=== PATIENT | female | born 1995 | race Caucasian/White ===

== ENCOUNTER 2019-04-06 05:27 | Inpatient (IN) | payer OTHER ==
[~2019-04-06] VITALS: Ht 162.6 cm; Wt 103.2 kg
[~2019-04-06 05:27] MED LIST: ALPR0.25 PO; ONDA4TAB13 PO; PRE NATAL VIT PO
[2019-04-06 07:30] VITALS: Ht 162.6 cm; Wt 103.2 kg
[2019-04-06] MEDS ORDERED: LACTATED RINGER'S 1,000 ML IV SCH (07:58)
[2019-04-06] MEDS ORDERED: OXYTOCIN 30 UNITS/LR 500 ML IV SCH ×2 (08:00→14:11)
[2019-04-06] MEDS ORDERED: CARBOPROST 250 MCG INJ IM PRN ×2 (08:00→14:30)
[2019-04-06] MEDS ORDERED: METHYLERGONOVINE 0.2 MG INJ IM PRN ×2 (08:00→14:30)
[2019-04-06] MEDS ORDERED: MISOPROSTOL 200 MCG TAB PR PRN ×2 (08:00→14:30)
[2019-04-06] MEDS ORDERED: OXYTOCIN 30 UNITS/LR 500 ML IV PRN ×2 (08:00→14:30)
[2019-04-06] MEDS ORDERED: CEFAZOLIN 2 GM/50 ML (PMX) 50 ML IVPB SCH (08:00)
[2019-04-06] MEDS ORDERED: morphine SULFATE/PF (10 MG/10 ML) INJ ONE (08:54)
[2019-04-06] MEDS ORDERED: OXYTOCIN 30 UNITS/LR 500 ML BAG IV ONE (08:54)
[2019-04-06] MEDS ORDERED: EPHEDrine 25 MG/5 ML SYG ONE (08:54)
[2019-04-06] MEDS ORDERED: PHENYLephrine (100 MCG/ML) 10ML SYG ONE (08:54)
[2019-04-06] MEDS ORDERED: ONDANSETRON 4 MG INJ ONE ×2 (09:12→09:52)
[2019-04-06] MEDS ORDERED: ALBUTEROL 0.083% (NEB) 2.5 MG/3 ML AMP HHN PRN (09:30)
[2019-04-06] MEDS ORDERED: HYDROmorphONE 0.5 MG/0.5 ML SYG IV PRN ×2 (09:30)
[2019-04-06] MEDS ORDERED: NALOXONE (0.4 MG/ML) INJ IV PRN (09:30)
[2019-04-06] MEDS ORDERED: FENTAnyl 50 MCG/ML VIAL IV PRN ×2 (09:30)
[2019-04-06] MEDS ORDERED: HYDROmorphONE 1 MG/5 ML IV SYRINGE IV PRN ×2 (09:30)
[2019-04-06] MEDS ORDERED: METOCLOPRAMIDE 10 MG INJ IV PRN (09:30)
[2019-04-06] MEDS ORDERED: ONDANSETRON 4 MG INJ IV PRN ×2 (09:30)
[2019-04-06] MEDS ORDERED: DIPHENHYDRAMINE 50 MG INJ IV PRN ×2 (09:30)
[2019-04-06] MEDS ORDERED: KETOROLAC 30 MG INJ IV PRN (09:30)
[2019-04-06 13:50] VITALS: BP 127/65; PULSE 66; RESP 18
[2019-04-06] MEDS: DEXTROSE 5%-LR 1,000 ML IV SCH ×2 (14:11→22:11)
[2019-04-06] MEDS ORDERED: MAGNESIUM HYDROXIDE 30ML CUP PO PRN (14:30)
[2019-04-06] MEDS ORDERED: LANOLIN HPA 1 PKT TOP PRN (14:30)
[2019-04-06] MEDS ORDERED: METHYLERGONOVINE 0.2 MG TAB PO PRN (14:30)
[2019-04-06 15:00] VITALS: BP 122/70; PULSE 70; RESP 18
[2019-04-06] MEDS: LACTATED RINGER'S 1,000 ML IV SCH (15:30)
[2019-04-06 17:00] VITALS: BP 122/59; PULSE 72; RESP 18
[2019-04-06 19:45] VITALS: BP 117/78; PULSE 73; RESP 18
[2019-04-06] MEDS: SENNA/DOCUSATE NA (8.6MG/50MG) TAB PO SCH (21:45)
[2019-04-06 23:54] VITALS: BP 124/68; PULSE 79; RESP 18
[2019-04-06] MEDS: KETOROLAC 30 MG INJ IV PRN (23:58)
[2019-04-07] MEDS: LACTATED RINGER'S 1,000 ML IV SCH (02:29)
[2019-04-07 04:30] VITALS: BP 112/58; PULSE 74; RESP 18
[2019-04-07] MEDS: DEXTROSE 5%-LR 1,000 ML IV SCH (06:11)
[2019-04-07 08:00] VITALS: BP 118/65; PULSE 77; RESP 16
[2019-04-07] MEDS: KETOROLAC 30 MG INJ IV PRN (09:15)
[2019-04-07] MEDS: SENNA/DOCUSATE NA (8.6MG/50MG) TAB PO SCH ×2 (09:15→21:33)
[2019-04-07] MEDS ORDERED: HYDROCODONE/APAP (5/325) TAB NGT PRN (11:00)
[2019-04-07] MEDS ORDERED: DIPHTH/TET/ACEL PERTUSS (ADULT) 0.5 ML VIAL IM* ONE (11:00)
[2019-04-07] MEDS: ASCORBIC ACID 500 MG TAB PO SCH (11:32)
[2019-04-07] MEDS: FERROUS SULFATE (EC) 325 MG TAB PO SCH (11:32)
[2019-04-07] MEDS: IBUPROFEN 800 MG TAB PO SCH ×2 (13:30→21:32)
[2019-04-07] MEDS: HYDROCODONE/APAP (5/325) TAB GTB SCH ×2 (14:00→21:33)
[2019-04-07 16:00] VITALS: BP 119/58; PULSE 74; RESP 18
[2019-04-07 19:50] VITALS: BP 124/64; PULSE 75; RESP 18
[2019-04-08] MEDS: HYDROCODONE/APAP (5/325) TAB GTB SCH ×3 (05:39→22:02)
[2019-04-08] MEDS: IBUPROFEN 800 MG TAB PO SCH ×3 (05:39→22:02)
[2019-04-08 07:30] VITALS: BP 118/78; PULSE 63; RESP 18
[2019-04-08] MEDS: FERROUS SULFATE (EC) 325 MG TAB PO SCH (11:22)
[2019-04-08] MEDS: SENNA/DOCUSATE NA (8.6MG/50MG) TAB PO SCH ×2 (11:22→22:02)
[2019-04-08] MEDS: ASCORBIC ACID 500 MG TAB PO SCH (11:22)
[2019-04-08 15:51] VITALS: BP 126/80; PULSE 75; RESP 18
[2019-04-08 20:00] VITALS: BP 118/72; PULSE 69; RESP 18
[2019-04-09 03:56] VITALS: BP 107/68; PULSE 68; RESP 18
[2019-04-09] MEDS: HYDROCODONE/APAP (5/325) TAB GTB SCH ×2 (05:32→14:13)
[2019-04-09] MEDS: IBUPROFEN 800 MG TAB PO SCH ×2 (05:33→14:12)
[2019-04-09 08:00] VITALS: BP 133/83; PULSE 83; RESP 20
[2019-04-09] MEDS ORDERED: DIPHTH/TET/ACEL PERTUSS (ADULT) 0.5 ML VIAL IM* ONE (09:00)
[2019-04-09] MEDS ORDERED: MEASLES,MUMPS,RUBELLA VACCINE INJ SC* ONE (09:00)
[2019-04-09] MEDS: ASCORBIC ACID 500 MG TAB PO SCH (09:30)
[2019-04-09] MEDS: FERROUS SULFATE (EC) 325 MG TAB PO SCH (09:30)
[2019-04-09] MEDS: SENNA/DOCUSATE NA (8.6MG/50MG) TAB PO SCH (09:30)
== END 2019-04-09 15:15 | disposition home or self-care (01) | DRG 788 ==
LOC: L-D 05:27 → MS1 13:53
PROVIDERS: ADMIT Obstetrics & Gynecology; ATTEND Obstetrics & Gynecology
PROC: 10D00Z1 Extraction of Products of Conception, Low, Open Approach (ICD-10-PCS; principal; 2019-04-06 07:30)
DX: O34.211 Maternal care for low transverse scar from previous cesarean delivery (principal); Z3A.39 39 weeks gestation of pregnancy; Z37.0 Single live birth
CPT/HCPCS: 85025; 85610; 85730; 86592; 86850; 86900; 86901; 87340; 90715; 99464; J0690; J1200; J1885; J2210; J2274; J2370; J2405; J2590; J7120; J7121